=== PATIENT | male | born 1950 | race Native Hawaiian/Other Pacific Islander ===

== ENCOUNTER 2019-04-01 18:20 | Emergency (ER) | payer OTHER ==
[~2019-04-01] VITALS: Ht 170.2 cm; Wt 97.5 kg
[2019-04-01 18:20] VITALS: BP 136/67; TEMP 99
[2019-04-01 19:16] LABS: PLATELET COUNT 223 K/uL (142-355)
[2019-04-01] MEDS ORDERED: CLOTRIM/BET1 TOP (21:55)
[2019-04-01] MEDS ORDERED: MULTIVITAMI1 PO (21:56)
[2019-04-01] MEDS ORDERED: DIVA250T2 PO (22:05)
[2019-04-01] MEDS ORDERED: DOCU100C10 PO (22:06)
[2019-04-01] MEDS ORDERED: DIVA500T2 PO (22:06)
[2019-04-01] MEDS ORDERED: FLONASE AL50 MCG/AC1 NAS (22:08)
[2019-04-01] MEDS ORDERED: ZIPR20CA PO ×2 (22:08→22:13)
[2019-04-01] MEDS ORDERED: FURO20TA67 PO (22:09)
[2019-04-01] MEDS ORDERED: ALLERGY10 MG PO (22:09)
[2019-04-01] MEDS ORDERED: NAMENDA5 MG PO (22:10)
[2019-04-01] MEDS ORDERED: FIBER LAXATIV0.52 GM PO (22:10)
[2019-04-01] MEDS ORDERED: REQUIP0.25 MG PO (22:12)
[2019-04-01] MEDS ORDERED: K-TAB20 MEQ PO (22:12)
[2019-04-05] MEDS ORDERED: ARIPIPRAZOLE10 MG PO (14:53)
[2019-04-05] MEDS ORDERED: MEMA5TAB PO (14:56)
[2019-04-05] MEDS ORDERED: ESCI10TA PO (14:59)
[2019-04-05] MEDS ORDERED: MAGNSUS68 PO (15:00)
[2019-04-05] MEDS ORDERED: TYLENOL325 MG PO (15:00)
== END 2019-04-01 20:14 | disposition other institution (70) ==
LOC: ED 18:22
PROVIDERS: Emergency Medicine
DX: R46.89 Other symptoms and signs involving appearance and behavior (principal); J44.9 Chronic obstructive pulmonary disease, unspecified; Z04.6 Encounter for general psychiatric examination, requested by authority
CPT/HCPCS: 36415; 80053; 85027; 93005; 99285